=== PATIENT | male | born 1980 | race African-American/Black ===

== ENCOUNTER 2018-10-23 13:32 | Emergency (ER) | payer OTHER ==
[~2018-10-23] VITALS: Ht 172.7 cm; Wt 82.0 kg
[2018-10-23 13:42] VITALS: Ht 172.7 cm; Wt 82.0 kg
[2018-10-23] MEDS ORDERED: LORAZEPAM 1 MG TAB PO ONE (14:00)
--- NOTE | 2018-10-23 14:28 | ERD ---
ER Documentation Chief Complaint Chief Complaint BIBRA from the street for SI without plan HPI 38 year-old man brought in by EMS for agitation and suicidal auditory hallucinations. He has a long history of psychiatric illness and states he was just discharged from [facility] and came here for reevaluation and readmission to a psychiatric facility. He states he does not recall what he did with the prescriptions he was just discharged with. He denies trauma, no fevers or chills, no chest pain or shortness of breath ROS All systems reviewed and are negative except as per history of present illness. Allergies Allergies: Coded Allergies: No Known Allergy (Unverified , 10/23/18) PMhx/Soc Psychiatric illness Medical and Surgical Hx: pt denies Medical Hx, pt denies Surgical Hx Hx Psychiatric Problems: Yes (schizophrenia, bipolar) Hx Miscellaneous Medical Probl: Yes (migraine headache) Hx Alcohol Use: No Hx Substance Use: Yes Hx Tobacco Use: Yes (1 pack/daily) Smoking Status: Current every day smoker FmHx Family History: No diabetes Physical Exam Vitals Vital Signs Date Temp Pulse Resp B/P (MAP) Pulse Ox O2 O2 Flow FiO2 Time Delivery Rate 10/23/18 98.4 88 16 114/86 96 13:42 (95) Physical Exam Const: No acute distress, anxious, afebrile Head: Atraumatic Eyes: Normal Conjunctiva ENT: Normal External Ears, Nose and Mouth. Neck: Full range of motion. No meningismus. Resp: Clear to auscultation bilaterally Cardio: Regular rate and rhythm, no murmurs Abd: Soft, non tender, non distended. Normal bowel sounds Skin: No petechiae or rashes Back: No midline or flank tenderness Ext: No cyanosis, or edema Neur: Awake and alert x3, gait normal, no focal deficits or facial asymmetry Psych: Agitated, anxious, hypervigilant Result Diagram: 10/23/18 1401 10/23/18 1401 Results 24 hrs Laboratory Tests Test 10/23/18 14:01 White Blood Count 8.0 10^3/ul Red Blood Count 5.09 10^6/ul Hemoglobin 15.4 g/dl Hematocrit 45.4 % Mean Corpuscular Volume 89.2 fl Mean Corpuscular Hemoglobin 30.3 pg Mean Corpuscular Hemoglobin Concent 33.9 g/dl Red Cell Distribution Width 12.1 % Platelet Count 224 10^3/UL Mean Platelet Volume 10.9 fl Immature Granulocytes % 1.700 % Neutrophils % 63.4 % Lymphocytes % 26.2 % Monocytes % 7.2 % Eosinophils % 1.0 % Basophils % 0.5 % Nucleated Red Blood Cells % 0.0 /100WBC Immature Granulocytes # 0.140 10^3/ul Neutrophils # 5.1 10^3/ul Lymphocytes # 2.1 10^3/ul Monocytes # 0.6 10^3/ul Eosinophils # 0.1 10^3/ul Basophils # 0.0 10^3/ul Nucleated Red Blood Cells # 0.0 10^3/ul Urine Color YELLOW Urine Clarity CLEAR Urine pH 6.0 Urine Specific [place] 1.016 Urine Ketones NEGATIVE mg/dL Urine Nitrite NEGATIVE mg/dL Urine Bilirubin NEGATIVE mg/dL Urine Urobilinogen NEGATIVE mg/dL Urine Leukocyte Esterase NEGATIVE Suzie/ul Urine Microscopic RBC 1 /HPF Urine Microscopic WBC 1 /HPF Urine Bacteria FEW /HPF Urine Hemoglobin NEGATIVE mg/dL Urine Glucose NEGATIVE mg/dL Urine Total Protein NEGATIVE mg/dl Sodium Level 142 mmol/L Potassium Level 4.3 mmol/L Chloride Level 105 mmol/L Carbon Dioxide Level 26 mmol/L Anion Gap 11 Blood Urea Nitrogen 16 mg/dl Creatinine 1.02 mg/dl Est Glomerular Filtrat Rate mL/min > 60 mL/min Glucose Level 102 mg/dl Calcium Level 10.2 mg/dl Total Bilirubin 0.2 mg/dl Direct Bilirubin 0.00 mg/dl Indirect Bilirubin 0.2 mg/dl Aspartate Amino Transf (AST/SGOT) 39 IU/L Alanine Aminotransferase (ALT/SGPT) 63 IU/L Alkaline Phosphatase 63 IU/L Total Protein 8.5 g/dl Albumin 4.7 g/dl Globulin 3.80 g/dl Albumin/Globulin Ratio 1.23 Salicylates Level < 1.0 mg/dl Urine Opiates Screen Negative Acetaminophen Level < 10.0 ug/ml Urine Barbiturates Negative Urine Amphetamines Screen NEGATIVE Urine Benzodiazepines Screen Negative Urine Cocaine Screen Negative Urine Cannabinoids Negative Ethyl Alcohol Level < 10.0 mg/dl Current Medications Medications Dose Sig/Iliana Start Time Status Last (Trade) Ordered Route PRN Stop Time Admin Dose Reason Admin Lorazepam 1 mg ONCE ONCE 10/23/18 DC 10/23/18 (Ativan) PO 14:00 14:00 10/23/18 14:01 Olanzapine 10 mg ONCE ONCE 10/23/18 DC 10/23/18 (Zyprexa) IM 15:00 15:39 10/23/18 15:01 Divalproex 500 mg ONCE ONCE 10/23/18 DC 10/23/18 Sodium PO 15:00 15:39 (Depakote) 10/23/18 15:01 Procedures/MDM I administered lorazepam 1 mg p.o. for his symptoms, security one-to-one watch was established. CBC and electrolytes were normal, liver function tests were normal, aspirin, Tylenol, ethanol levels negative, drug screen has also been ordered results are pending I will follow-up. Tele-psychiatry was consulted, and he agreed that the patient was acutely suicidal and agitated and recommended 5150 psychiatric hold and administration of olanzapine and valproic acid which I ordered and administered Patient's behavioral symptoms have stabilized while in the department. Patient is medically cleared and appropriate for psychiatric evaluation and work up. No e/o neurologic, toxic, infectious, or metabolic cause. Drug screen is negative PET evaluation has been ordered and they will assess the patient and patient will be placed on a psychiatric hold and transfer to the [facility] facility. Departure Diagnosis: Primary Impression: Schizophrenia Schizophrenia type: paranoid schizophrenia Qualified Codes: F20.0 - Paranoid schizophrenia Additional Impression: Suicidal ideation Condition: JASS Saenz MD Oct 23, 2018 14:27
--- NOTE | 2018-10-23 14:55 | PSY ---
Date/Time of Note Date/Time of Note DATE: 10/23/18 TIME: 14:43 Psychiatric Subjective Eval Subjective Evaluation Chief Complaint: BIBRA from the street for SI without plan Reason for consult: Suicidal ideation History of present illness This is a 38 year old male who was brought in by ambulance with complaints of suicidal ideation. He was discharged from [facility] this morning. He states that he does not know why he was discharged. He states that he is homeless. He has been treated for schizophrenia for years. He has had prior suicide attempts by overdosing on his medications. He states that he has been having problems with sleep and is experiencing command hallucinations telling him to kill himself. He said that Depakote and Olanzapine has helped in the past. He reports that he cannot be safely treated in the community at this time. He was pacing about during the interview. Past psychiatric history He said that he has been treated for schizophrenia for years. Hospitalization: yes Family History He has an aunt who has a history of mental illness. Medical history Problems Medical Problems: (1) Schizophrenia Status: Acute Allergies: Coded Allergies: No Known Allergy (Unverified , 10/23/18) Substance Abuse Substance use: other (Daily Marijuana use ) Social History Marital status: single Level of education: GED DPA/Conservatorship: No Occupation/Custodial: unemployed Psychiatric Objective Eval Review of Systems: Review of Systems: Applicable Constitutional: Normal Eyes: Normal ENT: Normal Neck: Normal Respiratory: Normal Chest/Breast: Normal Cardiovascular: Normal GI: Normal Genitourinary: Normal Skin: Normal Lymphatic: Normal Musculoskeletal: Normal Neurological: Normal Physical Examination: Physical Examination: Applicable Sleep: Insomnia Appetite: Adequate Energy: Adequate Interest: Adequate Mental Status Examination: Appearance: Disheveled Eye Contact: Fair Psychomotor Activity: Agitated Behavior: Cooperative, Guarded Speech: Clear AFFECT: Flat, Depressed, Anxious Mood: Depressed, Anxious Though Process: Linear Thought Content: Hallucinations Suicidal: Yes Homicidal: No On 72 hour hold: No Orientation: x4 Cognition: Alert Insight: Impared Judgement: Impared Attention Span: Distractible Laboratory Results Laboratory Tests Test 10/23/18 14:01 White Blood Count 8.0 10^3/ul Red Blood Count 5.09 10^6/ul Hemoglobin 15.4 g/dl Hematocrit 45.4 % Mean Corpuscular Volume 89.2 fl Mean Corpuscular Hemoglobin 30.3 pg Mean Corpuscular Hemoglobin Concent 33.9 g/dl Red Cell Distribution Width 12.1 % Platelet Count 224 10^3/UL Mean Platelet Volume 10.9 fl Immature Granulocytes % 1.700 % Neutrophils % 63.4 % Lymphocytes % 26.2 % Monocytes % 7.2 % Eosinophils % 1.0 % Basophils % 0.5 % Nucleated Red Blood Cells % 0.0 /100WBC Immature Granulocytes # 0.140 10^3/ul Neutrophils # 5.1 10^3/ul Lymphocytes # 2.1 10^3/ul Monocytes # 0.6 10^3/ul Eosinophils # 0.1 10^3/ul Basophils # 0.0 10^3/ul Nucleated Red Blood Cells # 0.0 10^3/ul Urine Color YELLOW Urine Clarity CLEAR Urine pH 6.0 Urine Specific [place] 1.016 Urine Ketones NEGATIVE mg/dL Urine Nitrite NEGATIVE mg/dL Urine Bilirubin NEGATIVE mg/dL Urine Urobilinogen NEGATIVE mg/dL Urine Leukocyte Esterase NEGATIVE Suzie/ul Urine Microscopic RBC 1 /HPF Urine Microscopic WBC 1 /HPF Urine Bacteria FEW /HPF Urine Hemoglobin NEGATIVE mg/dL Urine Glucose NEGATIVE mg/dL Urine Total Protein NEGATIVE mg/dl Assessment and Plan Assessment/Diagnosis Diagnosis Schizoaffective Disorder unspecified F25.9 Recommendation/Plan Medication Management Depakote 500mg po bid check blood level in 2 days Olanzapine 10mg po bid Multiple antipsychotics: No Discharge Disposition: Psychiatric inpatient Legal Status: Place involuntary hold RAVI GONSALEZ MD Oct 23, 2018 14:53
[2018-10-23] MEDS ORDERED: DIVALPROEX (EC) 500 MG TAB PO ONE (15:00)
[2018-10-23] MEDS ORDERED: OLANZAPINE 10 MG VIAL IM ONE (15:00)
[2018-10-23] MEDS ORDERED: DIVA-73 PO (22:53)
[2018-10-23] MEDS ORDERED: OLAN2.5T28 PO (22:53)
[2018-10-24 03:31] VITALS: BP 143/73; PULSE 82; RESP 17
== END 2018-10-24 05:34 ==
LOC: E/R 13:32
DX: F20.0 Paranoid schizophrenia (principal); R45.851 Suicidal ideations; R40.2142 Coma scale, eyes open, spontaneous, at arrival to emergency department; R40.2252 Coma scale, best verbal response, oriented, at arrival to emergency department; R40.2362 Coma scale, best motor response, obeys commands, at arrival to emergency department; F17.210 Nicotine dependence, cigarettes, uncomplicated
CPT/HCPCS: 80053; 80307; 81003; 85025; 96372; Z7502; Z7610